=== PATIENT | female | born 1950 | race Caucasian/White ===

== ENCOUNTER 2018-08-10 11:26 | Observation (INO) | payer MEDICARE, SELFPAY ==
[2018-08-10 11:27] VITALS: BP 134/66; PULSE 90; RESP 17; TEMP 37.3; O2SAT 98; BMI 35.6
--- NOTE | 2018-08-10 11:53 | EKG12_ITS ---
Test Reason : Blood Pressure : / mmHG Vent. Rate : 087 BPM Atrial Rate : 375 BPM P-R Int : 000 ms QRS Dur : 082 ms QT Int : 372 ms P-R-T Axes : 000 026 -24 degrees QTc Int : 447 ms Atrial fibrillation with premature ventricular or aberrantly conducted complexes Cannot rule out Inferior infarct , age undetermined Abnormal ECG Confirmed by JOHN NAJERA, ARTIS ([id number]), supervising editor trailer VANESSA PHNA ([id number]) on 08/14/2018 11:51:46 AM Referred By: JOSELYN Confirmed By:ARTIS LOPEZ MD
--- NOTE | 2018-08-10 11:53 | US_ITS ---
STUDY: ABDOMINAL ULTRASOUND - RIGHT UPPER QUADRANT REASON FOR VISIT: Female, 68 years old. Right upper quadrant pain TECHNIQUE: Ultrasound evaluation of the right upper quadrant was performed with real-time and static floyd-scale imaging. TECHNICAL QUALITY: Adequate. COMPARISON: None. FINDINGS: Liver: The liver measures 15.7 cm. There is increased echogenicity consistent with fatty infiltration. The bile ducts are within normal limits. There is hepatic color flow. The direction of portal flow is hepatopetal. Liver cyst measuring 10.6 x 13.2 x 11.7 cm; unsure if there is internal debris. Gallbladder: Normal distended gallbladder. The gallbladder wall measures 2.8 mm. There is a positive sonographic Sal's sign. There is no pericholecystic fluid. Solitary gallstone measuring 1.9 x 2 x 0.9 cm. Common Bile Duct (C.B.D.): The common bile duct measures 3.4 mm. Pancreas: Normal size of the head, body and tail of the pancreas. There is normal echogenicity of the pancreas. There is no demonstrated pancreatic mass or cyst. Right Kidney: Normal size of the right kidney. The right kidney measures 10.9 cm. Normal renal cortex. The right cortex measures 1.3 cm. There is no demonstrated renal mass or cyst. There is no right hydronephrosis. Nonobstructing right nephrolith measuring 4.1 x 6.1 mm. US/Gallbladder IMPRESSION: Cystic lesion within the liver with possible layering debris. Unsure if this represents some type of liver abscess. Recommend CT abdomen and pelvis with oral and IV contrast to further evaluate Positive sonographic Sal sign with solitary gallstone. No evidence of wall thickening or pericholecystic fluid. Electronically Signed: Mohan Rojo DO at 13:35 EDT Tel , Service support ,
--- NOTE | 2018-08-10 12:02 | ED.DCSUM_ITS ---
- ER Visit Summary Date of Service: 08/10/18 Chief Complaint: Abdominal pain History of Present Illness: The patient is a 68 F with right upper quadrant abdominal pain. This has been going on for 2 weeks. She was seen at an outside ED and had CT, ultrasound, and laboratory evaluation. She was discharged from the ED and referred to Dr. Doyle for outpatient follow-up for gallstones. Patient presents today with increasing pain. Denies any nausea or vomiting. Denies fever or jaundice. She has a remote history of tonsil surgery. No other abdominal surgeries. Denies chest pain or shortness of breath. She does have a history of atrial fibrillation and takes Xarelto. Physical Examination: Afebrile and vital signs unremarkable. Alert and oriented. No acute distress. Heart regular. Lungs clear. Abdomen tender in right upper quadrant. No guarding or rebound. Skin normal in color without jaundice. Test Results: Labs, EKG, chest x-ray, and ultrasound pending. Emergency Department Course and Treatment: Patient made n.p.o. Treated with fluids, morphine, and Zofran while awaiting results. EKG showed atrial fibrillation a rate of 87. Chest x-ray normal. Troponin normal. CBC unremarkable. CMP unremarkable except total bilirubin 1.2. Lipase normal. Ultrasound showed a liver cyst with debris. Radiology was recommending a CT. I was able to pull up her CT from July 30 of this year. This was 11 days ago. It showed stable cystic changes within the liver spleen and left kidney. She is not septic and does not have a leukocytosis. I do not believe she has a liver abscess. I discussed this with Dr. Fuentes. Patient is having continued pain and not doing well at home. She required IV pain medicine for intractable pain. I spoke with Dr. Fuentes who will admit for further care. Treatment Plan: As above Disposition: Admission Impression: 1. Biliary colic 2. Hepatic cysts This note was generated with [employer] dictation software. It may contain incorrect words, spelling, and punctuation that were not noted in review of the chart prior to signing ED Disposition - Plan for ED Patient: Referrals: Care Physician,No Primary [Primary Care Provider] -
--- NOTE | 2018-08-10 12:07 | RAD_ITS ---
STUDY: X-RAY CHEST REASON FOR EXAM: Female, 68 years old. Chest pain TECHNIQUE: Single AP portable view of the chest. COMPARISON: None. FINDINGS: The lungs are clear and expanded. There is no demonstrated pleural abnormality. Normal size heart. Normal mediastinum and hilda. Normal visualized pulmonary arteries. Normal visualized aortic arch and descending thoracic aorta. Normal visualized thoracic spine. Normal visualized ribs, clavicles, and shoulders. There is no demonstrated abnormality of the visualized soft tissue structures of the upper abdomen. RAD/Chest 1 View (Portable) IMPRESSION: Normal x-ray examination of the chest. Electronically Signed: Mohan Rojo DO at 12:44 EDT Tel , Service support ,
[2018-08-10] MEDS: 0.9% Normal Saline 1,000 ML 1000 ML IV (12:09)
[2018-08-10] MEDS: Morphine 4 MG/ML Syringe IV ×2 (12:09→17:03)
[2018-08-10] MEDS: Ondansetron 4 MG/2 ML Vial IV (12:09)
[2018-08-10 12:25] LABS: Absolute Lymphocyte Count 1.68 X10^3/ul (0.83-4.51); Absolute Neutrophil Count 4.7 X10^3/uL (2.0-7.7); Basophil# 0.01 X10^3/uL; Basophil% 0.1 % (0-1); Eosinophil# 0.08 X10^3/uL; Eosinophils% 1.1 % (0-5); Hematocrit 33.3 % (37-47); Hemoglobin 11.2 g/dl (12.0-15.0); Lymphocyte # 1.68 X10^3/ul (4.0); Lymphocyte % 23.4 % (19-41); Mean Corp Hgb Conc 33.6 g/gl (32-36); Mean Corpuscular Hgb 29.9 pg (27.0-32.0); Mean Platelet Vol. 10.3 fl (6.2-12.0); Monocyte# 0.68 X10^3/uL; Monocyte% 9.5 % (0-10); Neutrophil # 4.72 X10^3/uL (2.7-7.7); Neutrophil % 65.6 % (47-70); POSITIVE COUNT NO; POSITIVE DIFFERENTIAL NO; POSITIVE MORPHOLOGY NO; Platelet Count 246 K/mm3 (150-450); RBC Distribution Width CV 13.3 % (11.6-14.6); RBC Distribution Width SD 43.2 fl (35.1-43.9); Red Blood Count 3.74 M/mm3 (4.2-5.4); White Blood Count 7.2 K/mm3 (4.4-11.0)
[2018-08-10 12:36] LABS: ALB/GLOB Ratio 0.8 RATIO (0.9-2.4); AST(SGOT) 19 U/L (15-37); Alanine Aminotransfer ALT/SGPT 25 U/L (13-56); Albumin, Serum 3.3 g/dL (3.2-5.0); Alkaline Phosphatase 74 U/L (45-117); Anion Gap 10 (5-15); BUN 10 mg/dL (7-18); BUN/Creat Ratio 12.4 RATIO (10-20); Calcium,Total 8.8 mg/dL (8.5-10.1); Chloride 106 mmol/L (98-107); Creatinine, Serum 0.81 mg/dL (0.55-1.02); EST Glomerular Filtration Rate 75 mL/min (>60); Est Glom Filt Rate - Afr Amer 91 mL/min (>60); Estimated Creatinine Clearance 52.57 ml/min; Glucose 118 mg/dL (74-106); Lipase 111 U/L (73-393); Protein, Total 7.3 g/dL (6.4-8.2); Sodium Level 141 mmol/L (136-145)
[2018-08-10 13:53] VITALS: BP 129/87; PULSE 78; RESP 18; O2SAT 99
[2018-08-10 14:23] VITALS: BMI 36.0
[2018-08-10 14:24] VITALS: BMI 36.0
[2018-08-10 14:45] VITALS: BP 134/98; PULSE 79; RESP 18; TEMP 36.8; O2SAT 100
--- NOTE | 2018-08-10 14:50 | HP.PCM_ITS ---
History and Physical Date of Admission: 08/10/18 Chief Complaint: abdominal pain History of Present Illness: 68 y/o WF found to have cholelithiasis, presents with intractable epigastric abdominal pain. Began about 2 weeks ago. Had been seen in ED at [place], found by US to have cholelithiasis. Denies fevers, denies chills. Described as sharp pains, doubles her over. Has nausea. Denies biliary obstructive signs such as icterus, jaundice. Normal WBC with no left shift. LFTs - elevated tbili at 1.2 Repeat US in ED at [facility] - no pericholecystic fluid, gallstones, positive sonographic Sal's Past Medical History: chronic atrial fibrillation obesity hypertension Past Surgical History: Tonsillectomy Medications: xarelto atenolol Allergies: Has no known drug allergies Social history: TOB use denies Review of Systems: General - denies fevers, denies weight loss, denies anorexia Cardiovascular denies chest pain, chronic atrial fibrillation Pulmonary denies shortness of breath, denies coughing up blood Gastrointestinal as per HPI, denies blood in stools Neurological denies numbness/weakness of extremities, denies seizures, denies history of stroke Genitourinary denies burning with urination, denies blood in urine Hematological denies spontaneous/prolonged bleeding, on xarelto Skin denies open non healing wounds Musculoskeletal denies myalgias Endocrine denies diabetes Psychological denies hallucinations Physical examination: Vital signs Temp General WD/WN WF in no apparent distress, alert and oriented, not septic appearing HEENT Normocephalic. EOM intact with sclera clear and no icterus noted. Neck is supple with no jugular venous distention noted. Trachea is midline. Lungs clear to auscultation. normal breath sounds. No rales/rhonchi/wheezing noted. No labored breathing noted, such as retractions. No cough heard. Heart normal S1 and S2 auscultated. No rubs/clicks/murmurs noted. Irregular. Abdomen soft but tender in right upper quadrant and epigastrium, no peritoneal signs noted. Normal bowel sounds, difficult to determine if any masses due to body habitus Extremities no calf tenderness noted. No pitting edema noted. No obvious deformity noted. Genitourinary/Rectal deferred Skin normal skin integrity. Neurological cranial nerves II-XII intact. Normal motor strength in arms and legs. No localized numbness detected. Psychological normal affect, patient is calm and appropriate Impression: intractable biliary colic cholelithiasis, clinically cholecystitis Discussion/Plan: I have discussed the above with the patient. Unless patient has clinical deterioration from present, will plan on surgery later this week, earliest would be Sunday. I have offered the patient the procedure of laparoscopic cholecystectomy. I have explained the procedure to the patient. I have counseled the patient as to the risks of the procedure, including but not limited to: infection, bleeding, injury to any blood vessels/nerves, scar tissue, injury to any intraabdominal organs, injury to kidney/ureters, injury to bowel/bladder, injury to the common bile duct/biliary tree, bile leakage, intraabdominal abscess/bleeding, hernias at incisional sites, wound infections, possible open procedure, complications of anesthesia, postoperative pneumonia/cardiac problems/blood clots etc. the patient understands. She agrees to proceed For now, will keep patient comfortable, give pain medications, clear liquid diet, start IV antibiotics I have answered all questions to the patient?s satisfaction and the patient has no further questions.
[2018-08-10] MEDS: Lactated Ringers 1,000 ML 100 ML IV (15:11)
[2018-08-10 20:25] VITALS: BP 142/78; PULSE 96; RESP 18; TEMP 37.3; O2SAT 97
[2018-08-10] MEDS: HYDROcodone Bitartrate/Apap 5/325 Tablet PO (22:10)
[2018-08-11] MEDS: Lactated Ringers 1,000 ML 100 ML IV (02:29)
[2018-08-11 02:30] VITALS: BP 115/62; PULSE 82; RESP 18; TEMP 37; O2SAT 98
[2018-08-11] MEDS: HYDROcodone Bitartrate/Apap 5/325 Tablet PO ×2 (02:32→06:41)
--- NOTE | 2018-08-11 06:42 | PCM.PN.SRG ---
Subjective: Patient still with pain, but feels improved, wants to go home - Physical Exam General: Alert, Oriented x3 Oral: Moist Mucosa Neck: Supple Lungs: Normal air movement Abdomen: Soft, Tender - right upper quadrant - decreased from yesterday Vital Signs Temp Pulse Resp BP Pulse Ox 98.6 F 82 18 115/62 98 08/11/18 02:30 08/11/18 02:30 08/11/18 02:30 08/11/18 02:30 08/11/18 02:30 Oxygen Delivery Method Room Air Weight: 89.4 kg Body Mass Index (BMI) 36.0 Intake and Output for Last 24 Hours 08/09/18 08/10/18 08/11/18 23:59 23:59 23:59 Intake Total 450 / 450 1607 / 1607 Output Total 425 / 425 Balance 450 / 450 1182 / 1182 Laboratory Tests Past 24 Hrs 08/10/18 08/10/18 11:44 11:44 WBC 7.2 RBC 3.74 L Hgb 11.2 L Hct 33.3 L MCV 89.0 MCH 29.9 MCHC 33.6 RDW 13.3 RDW Differential 43.2 Plt Count 246 MPV 10.3 Immature Gran % (Auto) 0.300 Neut % (Auto) 65.6 Lymph % (Auto) 23.4 [place] % (Auto) 9.5 Eos % (Auto) 1.1 Baso % (Auto) 0.1 Absolute Neuts (auto) 4.7 Absolute Lymphs (auto) 1.68 Total Counted Not Reportable Sodium 141 Potassium 4.0 Chloride 106 Carbon Dioxide 25.0 Anion Gap 10 BUN 10 Creatinine 0.81 Estim Creat Clear Calc 52.57 Est GFR (MDRD) Af Amer 91 Est GFR (MDRD) Non-Af 75 BUN/Creatinine Ratio 12.4 Glucose 118 H Calcium 8.8 Total Bilirubin 1.20 H AST 19 ALT 25 Alkaline Phosphatase 74 Troponin I < 0.015 Total Protein 7.3 Albumin 3.3 Globulin 4.0 Albumin/Globulin Ratio 0.8 L Lipase 111 Medical Necessity - Tobacco Use Smoking Status: Never smoker Assessment/Plan Impression: cholelithiasis, clinically cholecystitis Plan: patient wants to go home will d/c to home set up for surgery on Sunday or Sunday D/c to home on pain meds and antibiotics encourged to drink lots of water, stay on low fat diet
--- NOTE | 2018-08-11 06:44 | PCM.DC.GB ---
Discharge Diet: Light diet - advance as tolerated - drink plenty of water low fat diet Discharge Activity: Return to Normal Activity, May not drive while taking narcotic pain medications. Allergies/Adverse Reactions: Allergies No Known Allergies Allergy (Verified 08/10/18 11:27) Medications to take at Discharge Atenolol [Tenormin (beta emiliano)] 50 mg PO DAILY 08/10/18 Rivaroxaban [Xarelto] 20 mg PO DAILY 08/10/18 Amoxicillin/Potassium Clav [Augmentin 875-125 Tablet] 1 ea PO BID 4 Days #8 tab 08/11/18 Hydrocodone/Acetaminophen [[place] 5-325 Tablet] 1 ea PO Q8 PRN 5 Days #15 tab 08/11/18 The following prescriptions were given: Hydrocodone/Acetaminophen [[place] 5-325 Tablet] 1 ea PO Q8 PRN 5 Days #15 tab PRN Reason: Mod-Severe Pain (4-10/10) Amoxicillin/Potassium Clav [Augmentin 875-125 Tablet] 1 ea PO BID 4 Days #8 tab Primary Care Physician: Care Physician,No Primary [Primary Care Provider] - Test Results: Test results from this visit will be discussed in further detail at your follow-up appointment, if applicable. Please Follow Up With: Grazyna Fuentes MD - When: to be scheduled for surgery, my office will contact patient
[2018-08-11 07:28] VITALS: BP 113/67; PULSE 82; RESP 18; TEMP 36.6; O2SAT 98
[2018-08-11] MEDS: Atenolol 50 MG Tablet PO (09:19)
[2018-08-11 10:40] VITALS: BP 113/67; PULSE 82; RESP 18; TEMP 36.6; O2SAT 98
== END 2018-08-11 10:43 | disposition home or self-care (01) ==
LOC: ED 12:03 → MS3 13:51
PROVIDERS: Admitting Provider Surgery; Emergency Provider Emergency Medicine; Visit Provider Surgery
DX: K80.20 Calculus of gallbladder without cholecystitis without obstruction (principal); Z79.01 Long term (current) use of anticoagulants; Z79.899 Other long term (current) drug therapy; I48.2 Chronic atrial fibrillation; I10 Essential (primary) hypertension; E66.9 Obesity, unspecified; Z68.36 Body mass index [BMI] 36.0-36.9, adult; Z71.3 Dietary counseling and surveillance
CPT/HCPCS: 71045; 76705; 80053; 83690; 84484; 85025; 93005; 96361; 96365; 96366; 96375; 96376; 99218; 99284; J7030; J7120; A4216; G0378; J2405

== ENCOUNTER 2018-08-14 08:27 | Observation (INO) | payer MEDICARE, SELFPAY ==
--- NOTE | 2018-08-13 19:34 | HP.PCM_ITS ---
History and Physical Date of Admission: 08/14/18 Chief Complaint: abdominal pain History of Present Illness: 68 y/o WF found to have cholelithiasis, presented with intractable epigastric abdominal pain. She was admitted for observation several days ago. Pain somewhat subsided with IV pain meds, also treated with IV antibiotics. Patient wanted to go home over the holiday. She was discharged on pain medications and oral antibiotics. Now presents for treatment - laparoscopic cholecystectomy has been off xarelto since admission to hospital. Past Medical History: chronic atrial fibrillation obesity hypertension Past Surgical History: Tonsillectomy Medications: xarelto atenolol Allergies: Has no known drug allergies Social history: TOB use denies Review of Systems: General - denies fevers, denies weight loss, denies anorexia Cardiovascular denies chest pain, chronic atrial fibrillation Pulmonary denies shortness of breath, denies coughing up blood Gastrointestinal as per HPI, denies blood in stools Neurological denies numbness/weakness of extremities, denies seizures, denies history of stroke Genitourinary denies burning with urination, denies blood in urine Hematological denies spontaneous/prolonged bleeding, on xarelto Skin denies open non healing wounds Musculoskeletal denies myalgias Endocrine denies diabetes Psychological denies hallucinations Physical examination: Vital signs Temp 98.2F General WD/WN WF in no apparent distress, alert and oriented, not septic appearing HEENT Normocephalic. EOM intact with sclera clear and no icterus noted. Neck is supple with no jugular venous distention noted. Trachea is midline. Lungs clear to auscultation. normal breath sounds. No rales/rhonchi/wheezing noted. No labored breathing noted, such as retractions. No cough heard. Heart normal S1 and S2 auscultated. No rubs/clicks/murmurs noted. Ir regular. Abdomen soft but tender in right upper quadrant and epigastrium, no peritoneal signs noted. Normal bowel sounds, difficult to determine if any masses due to body habitus Extremities no calf tenderness noted. No pitting edema noted. No obvious deformity noted. Genitourinary/Rectal deferred Skin normal skin integrity. Neurological cranial nerves II-XII intact. Normal motor strength in arms and legs. No localized numbness detected. Psychological normal affect, patient is calm and appropriate Impression: intractable biliary colic cholelithiasis, clinically cholecystitis Discussion/Plan: I have discussed the above with the patient. I have offered the patient the procedure of laparoscopic cholecystectomy. I have explained the procedure to the patient. I have counseled the patient as to the risks of the procedure, including but not limited to: infection, bleeding, injury to any blood vessels/nerves, scar tissue, injury to any intraabdominal organs, injury to kidney/ureters, injury to bowel/bladder, injury to the common bile duct/biliary tree, bile leakage, intraabdominal abscess/bleeding, hernias at incisional sites, wound infections, possible open procedure, complications of anesthesia, postoperative pneumonia/cardiac problems/blood clots etc. the patient understands. She agrees to proceed I have answered all questions to the patient?s satisfaction and the patient has no further questions.
[2018-08-14] VITALS (10 sets, daily range): BP systolic 125–157; BP diastolic 81–100; PULSE 49–110; RESP 14–100; TEMP 36.6–36.9; O2SAT 96–100; BMI 36.2
--- NOTE | 2018-08-14 05:57 | EKG12_ITS ---
Test Reason : PRE OP Blood Pressure : / mmHG Vent. Rate : 080 BPM Atrial Rate : 441 BPM P-R Int : 000 ms QRS Dur : 086 ms QT Int : 380 ms P-R-T Axes : 000 054 -20 degrees QTc Int : 438 ms Atrial fibrillation with premature ventricular or aberrantly conducted complexes Abnormal ECG When compared with ECG of 10-AUG-2018 12:04, MANUAL COMPARISON REQUIRED, DATA IS UNCONFIRMED Confirmed by JOHN NAJERA, ARTIS ([id number]), scientific publications editor VANESSA PHAN ([id number]) on 08/19/2018 2:53:29 PM Referred By: Grazyna Fuentes Confirmed By:ARTIS LOPEZ MD
--- NOTE | 2018-08-14 06:58 | DCINST_ITS ---
Discharge Diet: No Restrictions - drink plenty of fluids avoid carbonated beverages for a couple of days Discharge Activity: Return to Normal Activity, May not drive while taking narcotic pain medications. Lifting Restrictions: no lifting greater than 20 pounds for two weeks Call your doctor if your incision/area has: Continuous Slow Oozing, Foul Smelling Discharge Call your doctor if you observe: Fever of 101 or Higher Additional Dressing/Incision Instructions:: Leave dressings in place. May get wet in shower. Do not soak - no tub baths/swimming Additional Instructions: Hold xarelto for at least a day after surgery Allergies/Adverse Reactions: Allergies No Known Allergies Allergy (Verified 08/13/18 10:15) Medications to take at Discharge RX: Atenolol [Tenormin (beta emiliano)] 50 mg PO DAILY 08/10/18 Rivaroxaban [Xarelto] 20 mg PO DAILY 08/10/18 Amoxicillin/Potassium Clav [Augmentin 875-125 Tablet] 1 ea PO BID 4 Days #8 tab 08/11/18 Hydrocodone/Acetaminophen [[place] 5-325 Tablet] 1 ea PO Q8 PRN 5 Days #15 tab 08/11/18 Primary Care Physician: [facility] ,Out of [Primary Care Provider] - Test Results: Test results from this visit will be discussed in further detail at your follow- up appointment, if applicable. Please Follow Up With: Grazyna Fuentes MD - call When: to be seen as needed
[2018-08-14] MEDS: Bupiv/Epi 0.25% 30 ML Vial (07:31)
[2018-08-14] MEDS: Sugammadex Sodium 200 MG/2 ML VIAL IV (08:00)
[2018-08-14] MEDS: Morphine 4 MG/ML Syringe IV (10:45)
[2018-08-14] MEDS: 0.9% NaCl Peripheral Flush Adult/Peds IV (10:46)
[2018-08-14] MEDS: HYDROcodone Bitartrate/Apap 5/325 Tablet PO ×2 (11:40→17:42)
--- NOTE | 2018-08-14 12:45 | PCM.OPRPT ---
Report of Operation Date of Procedure: 08/14/18 Pre-Operative Diagnosis: cholelithiasis, cholecystitis Post-Operative Diagnosis: cholelithiasis, cholecystitis, liver lesion obstructing visualization Surgery/Procedure Performed:: diagnostic laparoscopy Description of Surgical Findings:: patient with known liver cysts, large liver lesion obstructing visualization for adequate laparoscopic cholecystectomy, concern for possible neoplastic process research statistician: Paulina Belle Type of Anesthesia:: General Anesthesiologist: Megan Rosenthal Specimen's removed: none Estimated Blood Loss (mL): minimal Fluids Replaced: see anesthesia noted Description of Procedure: After informed consent was given, the patient was brought to the Operating Room. Appropriate time out protocol was followed. She was then placed in the supine position. The patient was then placed under general endotracheal anesthesia. The abdomen was then prepped with a sterile surgical skin preparation and sterile surgical drapes were placed. An area of skin superior to the umbilical dimple was grasped with penetrating clamps and the skin and subcutaneous tissues were infiltrated with 0.25% marcaine with epinephrine. A skin incision was then made with a 15 blade scalpel. The anterior abdominal wall was elevated and a Veress needle was carefully inserted into the intraabdominal cavity. It was checked to be in the proper position with a normal saline drop test. A CO2 pneumoperitoneum was then created. Once this was achieved, then the Veress needle was removed and an 11mm trocar was placed in its stead. A 10mm laparoscope was then inserted into the trocar and careful attention was directed to the intraabdominal contents. There was no evidence of injury to any intraabdominal organs from insertion of the Veress needle or the trocar. There was a large liver versus biliary tract lesion that seemed to be emanating from the right side liver edge that extended across the midline to the left side. The patient has known liver cysts. However, also seen was a rounded lesion on the left side of the falciform ligament that was concerning for possible tumor deposit or lymph node. Given that there is concern for neoplastic process, no further dissection was done. However, even if no neoplastic process is present, the large obstructing liver cyst was precluding adequate visualization of the gallbladder. Given the above, further surgery was aborted. Multiple intraabdominal pictures were obtained. The CO2 was released and the trocar removed intact. The periumbilical fascia was approximated with a [id number] 0 vicryl suture. The skin incision was closed with 4-0 monocryl in a subdermal fashion. Cavilol and Steristrips were used to reinforce the skin closure. Sterile dressings were applied to all wounds. The patient was extubated and brought to the Recovery Room in stable condition. - Complications none noted - Admit VTE Documentation VTE Present on Admission: Yes VTE Mechan Device Prophylaxis: SCD's
--- NOTE | 2018-08-14 18:27 | NURSING ---
report called to ancelmo conner rn at [facility]
== END 2018-08-14 18:35 | disposition short-term general hospital (02) ==
LOC: MS2 09:16 → SDC 09:17
PROVIDERS: Admitting Provider Surgery; Referring Provider Surgery; Visit Provider Surgery
PROC: (CPT 47610; principal; 2018-08-14 06:55)
DX: K80.10 Calculus of gallbladder with chronic cholecystitis without obstruction (principal); K76.9 Liver disease, unspecified; R94.31 Abnormal electrocardiogram [ECG] [EKG]; I48.2 Chronic atrial fibrillation; I10 Essential (primary) hypertension; E66.9 Obesity, unspecified; Z68.36 Body mass index [BMI] 36.0-36.9, adult; Z71.3 Dietary counseling and surveillance; Z79.899 Other long term (current) drug therapy; Z79.01 Long term (current) use of anticoagulants
CPT/HCPCS: 00790; 49320; 93005; 96374; 99218; J7120; A4216; G0378; G0379; J2405

== ENCOUNTER 2020-05-25 12:20 | Outpatient (RCR) | payer MEDICARE, SELFPAY ==
[2018-08-14 09:30] VITALS: BMI 36.2
[2020-05-25] MEDS: COVID-19 VACC, MRNA(PFIZER)/PF 30 MCG/0.3 ML SYRINGE IM (10:08)
[2020-06-15] MEDS: COVID-19 VACC, MRNA(PFIZER)/PF 30 MCG/0.3 ML SYRINGE IM (09:52)
== END 2020-08-24 23:59 ==
LOC: IMMUN 12:20
PROVIDERS: Visit Provider Family Medicine
DX: Z23 Encounter for immunization (principal)
CPT/HCPCS: 0001A; 0002A; 91300